=== PATIENT | female | born 1995 | race Caucasian/White ===

== ENCOUNTER 2018-04-18 20:03 | Emergency (ER) | payer OTHER ==
[~2018-04-18] VITALS: Ht 170.2 cm; Wt 72.6 kg
[2018-04-19] MEDS ORDERED: CEFTIN250 MG/5 M PO (03:25)
[2018-04-19] MEDS ORDERED: IBUPROFEN100 MG/5 M PO (03:25)
[2018-04-19] MEDS ORDERED: CLEOCIN HCL300 MG PO (03:25)
== END 2018-04-19 03:30 | disposition home or self-care (01) ==
LOC: ER 20:03
DX: J35.01 Chronic tonsillitis (principal)